=== PATIENT | male | born 1970 | race Hispanic/Latino ===

== ENCOUNTER 2017-07-13 11:14 | Observation (INO) | payer OTHER ==
[~2017-07-13] VITALS: Ht 185.4 cm; Wt 155.1 kg
[2017-07-13] MEDS ORDERED: ACETAMINOPHEN 325 MG TAB PO ONE (12:15)
--- NOTE | 2017-07-13 12:53 | Diagnostic Imaging Report ---
History:Right-sided numbness in foot and arm Comparison studies: None Technique: Axial images were obtained from the skull base to the vertex. Coronal and sagittal reconstructions obtained from the axial data. Findings: Scalp/skull: No abnormalities. No fractures, blastic or lytic lesions. Extra-axial spaces: No masses. No fluid collections. Brain sulci: Appropriate for age. Ventricles: Normal in size and configuration. No hydrocephalus. Parenchyma: No abnormal densities. No masses, hemorrhage, acute or chronic cortical vascular insults. Sellar/suprasellar region: No abnormalities Craniocervical junction: Patent foramen magnum. No Chiari one malformation. IMPRESSION: No abnormalities . Signed by: DR Jimi Pichardo M.D. on 07/13/2017 12:49 PM
[2017-07-13] MEDS ORDERED: ASPIRIN 325 MG TAB PO ONE (13:00)
[2017-07-13 13:04] LABS: BASOPHILS # (AUTO) 0.1 (0.0-0.1); BASOPHILS % 0.4 % (0.0-1.0); EOSINOPHILS # (AUTO) 0.4 (0.0-0.4); EOSINOPHILS % 2.4 % (0.0-6.0); HEMATOCRIT 44.3 % (38.2-49.6); HEMOGLOBIN 13.5 g/dL (14.0-18.0); MEAN CORPUSCULAR HEMOGLOBIN 22.6 pg (28-32); MEAN CORPUSCULAR HGB CONC 30.5 g/dL (31-35); MEAN CORPUSCULAR VOLUME 74.2 fL (81-99); MONOCYTES # (AUTO) 1.2 (0.2-0.8); MONOCYTES % 6.9 % (4.4-11.3); NEUTROPHILS # (AUTO) 13.2 (2.1-6.9); NEUTROPHILS % 77.9 % (38.7-80.0); PLATELET COUNT 404 x10e3/uL (140-360); RED BLOOD COUNT 5.97 x10e6/uL (4.3-5.7); RED CELL DISTRIBUTION WIDTH 19.9 % (11.7-14.4)
[2017-07-13 13:27] LABS: ALBUMIN 3.3 g/dL (3.5-5.0); ALBUMIN/GLOBULIN RATIO 0.7 (0.8-2.0); ANION GAP 14.1 mmol/L (8-16); CALCIUM 9.7 mg/dL (8.4-10.2); CREATININE, SERUM 1.34 mg/dL (0.72-1.25); POTASSIUM 4.1 mmol/L (3.5-5.1)
[2017-07-13] MEDS: SODIUM CHLORIDE 0.9% 1000ML 1,000 ML IV SCH (16:49)
[2017-07-13] MEDS: ASPIRIN 325 MG TAB EC PO SCH (16:49)
--- OUTSIDE RECORDS SUMMARY | 2017-07-13 17:38 | XMS REPORT ---
Author Author [facility] Address Unknown Phone Unavailable Care Team Providers Care Analysis Manager Name Role Phone JORDAN GUTHRIE Unavailable Unavailable Problems This patient has no known problems. Allergies, Adverse Reactions, Alerts This patient has no known allergies or adverse reactions. Medications This patient has no known medications. Results Test Description Test Time Test Comments Text Results Atomic Results Result Comments CT BRAIN WO [place] [address] Patient Name: RAHAT BRO MR #: [id number] : 1970 Age/Sex: 46/M Req #: [id number] Adm Physician: Ordered by: JORDAN GUTHRIE MD Report #: [id number] Location: ER Room/Bed: Procedure: [id number] CT/CT BRAIN WO Exam Date: 07/13/17 Exam Time: 1215 REPORT STATUS: Signed History:Right-sided numbness in foot and arm Comparison studies: None Technique: Axial images were obtained from the skull base to the vertex. Coronal and sagittal reconstructions obtained from the axial data. Findings: Scalp/skull: No abnormalities. No fractures, blastic or lytic lesions. Extra-axial spaces: No masses. No fluid collections. Brain sulci: Appropriate for age. Ventricles: Normal in size and configuration. No hydrocephalus. Parenchyma: No abnormal densities. No masses, hemorrhage, acute or chronic cortical vascular insults. Sellar/suprasellar region: No abnormalities Craniocervical junction: Patent foramen magnum. No Chiari one malformation. IMPRESSION: No abnormalities . Signed by: DR Jimi Pichardo M.D. on 2017 12:49 PM Dictated By: JIMI LEDEZMA MD 1249 Transcribed By: CADEN on 07/13/17 1249 COPY TO: JORDAN GUTHRIE MD
[2017-07-13 18:16] VITALS: BP 144/73
[2017-07-13] MEDS ORDERED: METOPROLOL SUCC25 MG (18:19)
[2017-07-13 18:41] VITALS: BP 144/73
[2017-07-13] MEDS ORDERED: JARDIANCE PO (18:53)
[2017-07-13] MEDS ORDERED: JANUMET XR 50-1 EAC1 (18:53)
[2017-07-13 19:00] VITALS: BP 126/77
[2017-07-13] MEDS ORDERED: ENOXAPARIN SOD INJ 40 MG/0.4 ML SYR SC SCH (19:00)
--- NOTE | 2017-07-13 19:45 | Diagnostic Imaging Report ---
Exams: Neck and intracranial CTA History:Right-sided weakness with slurred speech Comparison studies:None Technique: Axial images were obtained from the thoracic inlet. Coronal and sagittal images reconstructed from the axial data. Multiplanar MIP and 3-D reformatted images were also created from the axial source. Intravenous contrast: 100 cc of Omnipaque 300. If present, stenosis is calculated utilizing the NASCET method which calculates the degree of stenosis with reference to the normal lumen of the carotid artery distal to the stenosis. Findings: Cervical CTA: Aortic arch and major vessels: Patent, no abnormalities. Common origin of the right brachycephalic trunk and left common carotid artery. The left vertebral artery arises recommended off the aortic arch. Common carotid arteries: Patent. No abnormalities. Carotid bulbs: Patent, no (0% stenosis bilaterally. Minimal nonstenotic hard plaque at the left bulb. Internal carotid arteries: Patent, no abnormalities. Vertebral arteries:. Patent, no abnormalities. Right vertebral artery is dominant. Left vertebral artery arises directly off the aortic arch. Intracranial CTA: No aneurysm or vascular malformation identified. Internal carotid arteries: Patent, no abnormalities. Anterior cerebral arteries: Patent, no abnormalities in the A1 and A2 segments. The right A1 segment is congenitally smaller than left. Middle cerebral arteries: Patent, no abnormalities in the M1 and proximal M2 segments. Vertebral arteries: Patent, no abnormalities. Basilar artery: Patent, no abnormalities. Posterior cerebral arteries: Patent, no abnormalities. Hypoplastic bilateral P1 segments with the dominant supply to the posterior cerebral arteries bilaterally via prominent posterior to indicating arteries (bilateral persistent SECURITIES COUNSELOR origins). Anatomical variants: Acom: Patent. Pcoms: Patent, bilateral persistent SECURITIES COUNSELOR origins. Vertebral arteries: Right is dominant. Basilar artery: Mildly hypoplastic. Incidental findings: Mildly degenerated cervical disks from C4 to C7 with small anterior disc osteophyte complexes. Mild right C3-C4 foraminal stenosis due to uncovertebral arthrosis. IMPRESSION: Cervical CTA: 1. Patent carotid and vertebral arteries without stenosis. 2. No (0%) stenosis at the carotid bulbs. 3. Minimal nonstenotic plaque at the left carotid bulb. Intracranial CTA: 1. No acute intracranial CTA abnormalities. 2. No major branch occlusion or flow-limiting stenosis in the [place]. 3. Anatomical variants as described. Signed by: Dr. Joe Trujillo M.D. on 07/13/2017 7:41 PM
--- NOTE | 2017-07-13 19:45 | Diagnostic Imaging Report ---
Exams: Neck and intracranial CTA History:Right-sided weakness with slurred speech Comparison studies:None Technique: Axial images were obtained from the thoracic inlet. Coronal and sagittal images reconstructed from the axial data. Multiplanar MIP and 3-D reformatted images were also created from the axial source. Intravenous contrast: 100 cc of Omnipaque 300. If present, stenosis is calculated utilizing the NASCET method which calculates the degree of stenosis with reference to the normal lumen of the carotid artery distal to the stenosis. Findings: Cervical CTA: Aortic arch and major vessels: Patent, no abnormalities. Common origin of the right brachycephalic trunk and left common carotid artery. The left vertebral artery arises recommended off the aortic arch. Common carotid arteries: Patent. No abnormalities. Carotid bulbs: Patent, no (0% stenosis bilaterally. Minimal nonstenotic hard plaque at the left bulb. Internal carotid arteries: Patent, no abnormalities. Vertebral arteries:. Patent, no abnormalities. Right vertebral artery is dominant. Left vertebral artery arises directly off the aortic arch. Intracranial CTA: No aneurysm or vascular malformation identified. Internal carotid arteries: Patent, no abnormalities. Anterior cerebral arteries: Patent, no abnormalities in the A1 and A2 segments. The right A1 segment is congenitally smaller than left. Middle cerebral arteries: Patent, no abnormalities in the M1 and proximal M2 segments. Vertebral arteries: Patent, no abnormalities. Basilar artery: Patent, no abnormalities. Posterior cerebral arteries: Patent, no abnormalities. Hypoplastic bilateral P1 segments with the dominant supply to the posterior cerebral arteries bilaterally via prominent posterior to indicating arteries (bilateral persistent SERVICE AIDE origins). Anatomical variants: Acom: Patent. Pcoms: Patent, bilateral persistent SERVICE AIDE origins. Vertebral arteries: Right is dominant. Basilar artery: Mildly hypoplastic. Incidental findings: Mildly degenerated cervical disks from C4 to C7 with small anterior disc osteophyte complexes. Mild right C3-C4 foraminal stenosis due to uncovertebral arthrosis. IMPRESSION: Cervical CTA: 1. Patent carotid and vertebral arteries without stenosis. 2. No (0%) stenosis at the carotid bulbs. 3. Minimal nonstenotic plaque at the left carotid bulb. Intracranial CTA: 1. No acute intracranial CTA abnormalities. 2. No major branch occlusion or flow-limiting stenosis in the [place]. 3. Anatomical variants as described. Signed by: Dr. Joe Trujillo M.D. on 07/13/2017 7:41 PM
[2017-07-13 21:11] VITALS: BP 144/73
[2017-07-13] MEDS ORDERED: IOPAMIDOL 370 MG/ML 200 ML INFUS..BTL INJ ONE (22:52)
[2017-07-13] MEDS ORDERED: SODIUM CHLORIDE 0.9% 100 ML ONE (22:52)
[2017-07-13 23:22] LABS: INR 1.15; PARTIAL THROMBOPLASTIN TIME 32.6 seconds (23.8-35.5); PROTHROMBIN TIME 13.8 seconds (11.9-14.5)
[2017-07-14] VITALS: BP 135/53
[2017-07-14] MEDS: SODIUM CHLORIDE 0.9% 1000ML 1,000 ML IV SCH ×2 (02:03→08:07)
[2017-07-14 04:00] VITALS: BP 136/53
[2017-07-14 06:17] LABS: BASOPHILS % 0.3 % (0.0-1.0); EOSINOPHILS # (AUTO) 0.4 (0.0-0.4); EOSINOPHILS % 2.8 % (0.0-6.0); HEMATOCRIT 42.7 % (38.2-49.6); HEMOGLOBIN 12.9 g/dL (14.0-18.0); LYMPHOCYTES # (AUTO) 1.8 (1.0-3.2); LYMPHOCYTES % 11.4 % (18.0-39.1); MEAN CORPUSCULAR HGB CONC 30.2 g/dL (31-35); MONOCYTES # (AUTO) 1.2 (0.2-0.8); MONOCYTES % 7.4 % (4.4-11.3); NEUTROPHILS # (AUTO) 12.1 (2.1-6.9); NEUTROPHILS % 77.5 % (38.7-80.0); PLATELET COUNT 381 x10e3/uL (140-360); RED BLOOD COUNT 5.62 x10e6/uL (4.3-5.7); RED CELL DISTRIBUTION WIDTH 19.8 % (11.7-14.4)
[2017-07-14 06:32] LABS: ALANINE AMINOTRANSFERASE 25 IU/L (0-55); ALBUMIN 2.9 g/dL (3.5-5.0); ALBUMIN/GLOBULIN RATIO 0.6 (0.8-2.0); ALKALINE PHOSPHATASE 47 IU/L (40-150); ANION GAP 11.9 mmol/L (8-16); BLOOD UREA NITROGEN 12 mg/dL (7-26); BUN/CREATININE RATIO 10 (6-25); CARBON DIOXIDE 29 mmol/L (22-29); CHLORIDE 101 mmol/L (98-107); CREATININE, SERUM 1.24 mg/dL (0.72-1.25); EST GLOMERULAR FILTRATION RATE > 60 ML/MIN (60-); GLUCOSE 119 mg/dL (74-118); POTASSIUM 4.9 mmol/L (3.5-5.1); SODIUM 137 mmol/L (136-145)
[2017-07-14] MEDS ORDERED: FAMOTIDINE 20 MG TAB PO SCH (07:30)
[2017-07-14 08:09] VITALS: BP 125/66
[2017-07-14] MEDS: ASPIRIN 325 MG TAB EC PO SCH (08:09)
[2017-07-14 08:18] VITALS: BP 125/66
[2017-07-14] MEDS ORDERED: JARDIANCE 10 MG PO SCH (09:00)
--- NOTE | 2017-07-14 11:50 | Consultation ---
DATE OF CONSULTATION: July 13, 2017 NEUROLOGICAL CONSULTATION HISTORY OF PRESENT ILLNESS: Mr. Salinas is a 46-year-old iarow-udia-surtlquk man with past medical history significant for hypertension, hyperlipidemia, and diabetes mellitus type 2 who he presents to [facility] with a probable transient ischemic attack. On the morning of admission, the patient experienced the sudden onset of numbness of the right foot. This was followed approximately one minute later by a heavy sensation affecting the right hand and arm. These symptoms lasted for approximately 4 to 5 minutes, then spontaneously resolved. Ten minutes later the above symptoms recurred with the addition of weakness affecting the right hand. Mr. Salinas reports being unable to write with his right hand, text with his right hand, or manipulate a computer mouse. Once again, the symptoms lasted for approximately 4 to 5 minutes and then spontaneously resolved. Some time later these symptoms recurred for a third time. When the symptoms recurred for the third time, the patient texted his . However, due to weakness and possible incoordination of the right hand, the text message sent to the patient's was not decipherable. The patient's then called the patient to find out why he sent such a strange text message. While speaking to the patient, Mrs. Salinas noted the patient's speech was slowed. She does not report dysarthria or aphasia, but slowness of speech. Mrs. Salinas encouraged her to call 11-11-1, but he declined. She then drove to the patient's place of work to pick him up and bring him to a hospital for evaluation and treatment. During this time, the patient experienced a 4th recurrence of the previously described symptoms. Mr. Salinas's brought him to the emergency center at [facility] for further evaluation and treatment. En route to the hospital, the patient's reports Mr. Salinas endorsed a headache which is described as follows: The pain was located over the occiput, towards the right side of the head and did not radiate. The pain was described as dull and rated a 4 out of 10. There was no photophobia, phonophobia, nausea, vomiting, dizziness or visual disturbance associated with the headache. Mr. Salinas does not have a prior history of headaches. In the emergency center, the patient's blood pressure was 155/66 mmHg with a pulse of 98 beats per minute. His neurological examination was reportedly nonfocal. A CT of the brain without contrast was performed and did not show evidence of recent large territorial ischemia or hemorrhage. Mr. Salinas was admitted to [facility] under observation status for further evaluation and treatment. REVIEW OF SYSTEMS: Slowed speech, weakness of the right arm, numbness of the right foot, headache. Otherwise the 12 point review of systems is negative. PAST MEDICAL HISTORY: Hypertension, hyperlipidemia, diabetes mellitus type 2, chronic kidney disease stage unknown, kidney stones. PAST SURGICAL HISTORY: Mr. Salinas reports undergoing a cauterization procedure as part of fertility treatments. PAST HOSPITALIZATIONS: None. FAMILY HISTORY: The patient reports hypertension, hyperlipidemia, and diabetes mellitus affecting both sides of his family. His father has coronary artery disease and he has had a prior stroke. SOCIAL HISTORY: The patient is . He works as a general purchasing agent. The patient reports dipping tobacco, but has never smoked cigarettes. He does endorse drinking an occasional beer. The patient does not report current or prior recreational drug use. HOME MEDICATIONS: Metoprolol 25 mg by mouth daily, losartan, dose unknown, by mouth daily, Crestor, dose unknown, by mouth at bedtime daily, Janumet 50/100 mg by mouth twice daily, Jardiance 10 mg by mouth daily, testosterone 260 mg injected subcutaneously weekly. ALLERGIES: NO KNOWN DRUG ALLERGIES. NO KNOWN FOOD ALLERGIES. NO KNOWN ALLERGIES TO LATEX. NO KNOWN ALLERGIES TO IODINE OR OTHER CONTRAST MATERIALS. PHYSICAL EXAMINATION: VITAL SIGNS: Height 73 inches, weight 440 pounds. BMI 44.9 kg per meter squared. Blood pressure 116/74 mmHg. Pulse 95 beats per minute. Respiratory rate 16 breaths per minute. Oxygen saturation 99% on room air. GENERAL: The patient is awake and alert. Does not appear distressed. Morbidly obese. HEENT: Normocephalic and atraumatic. Pupils are equal, round and reactive to light. Moist mucous membranes. NECK: Supple. No appreciable thyromegaly. No appreciable carotid bruits. CARDIOVASCULAR: S1 and S2. Regular rate and rhythm. No murmurs, rubs or gallops. RESPIRATORY: Clear to auscultation bilaterally. No wheezes, rhonchi or rales. EXTREMITIES: The skin is warm and dry. No clubbing or cyanosis. Positive for 1+ pretibial pitting edema. The posterior tibial and dorsalis pedis pulses are 2+ and symmetric. SKIN: No rashes or lesions. NEUROLOGIC: Memory/attention: The patient is awake and alert. Oriented to person, place, time, and situation. CRANIAL NERVES: Cranial nerve I: Not tested. Cranial nerves II, III, IV, : Pupils are equal and round, react briskly to light (from 4 mm to 2 mm). Extraocular movements intact. No nystagmus. Cranial nerve V: Sensation to light touch and pinprick is intact in the bilateral V1 through V3 distributions. Strength of the temporalis and masseter muscles is within normal limits. Cranial nerve VII: The face is symmetric, as are all facial movements. Strength is within normal limits. Cranial nerve VIII: Hearing is intact to finger rub bilaterally. Cranial nerve IX and X: The soft palate elevates equally and symmetrically. Cranial nerve XI: Normal strength of the bilateral sternocleidomastoid and trapezius muscles. Cranial nerve XII: The tongue protrudes midline and moves symmetrically from side to side. STRENGTH: Bulk is normal, and strength is 5/5 in the bilateral deltoids, biceps, triceps, wrist flexors and extensors, finger flexors and extensors, intrinsic hand muscles, hip flexors, knee flexors and extensors, ankle dorsiflexion and plantar flexion, and intrinsic foot muscles. Tone is normal. DTRs: Deep tendon reflexes are 2+ and symmetric at the triceps, biceps, brachioradialis, patellas, and Achilles. Plantar responses are flexor bilaterally. Absent clonus. SENSATION: Intact to light touch and pinprick in both arms and both legs. CEREBELLAR: Yqlwwa-rapu-cfzkgi and heel-medel movements are intact without dysmetria or other impairment. Rapid alternating movements are intact. GAIT: Deferred. SPEECH: Spontaneous speech is normal without appreciable dysarthria or aphasia. Repetition is intact. INVOLUNTARY MOVEMENTS: None. PRONATOR DRIFT: None. LABORATORY DATA: Sodium 139, potassium 4.1, chloride 100, carbon dioxide 29. Anion gap 14.1, BUN 12, creatine 1.34. Estimated GFR 58. BUN to creatinine ratio 9. Glucose 111 and calcium of 9.7. Total bilirubin 0.7, AST 17, ALT 30, alkaline phosphatase 52. Total protein 8.3. Albumin 3.3, globulin 5.0. Albumin to globulin ratio 0.7. The CBC with differential and platelets reveals a white blood cell count of 16.94 with 77.9% neutrophils, 12.0% lymphocytes, 6.9% monocytes, 2.4% eosinophils and 0.4% basophils. The hemoglobin, hematocrit are 13.5 and 44.3, respectively. The platelet count is 404,000. DIAGNOSTIC STUDIES: EKG on 07/13/2017: Normal sinus rhythm at 83 beats per minute, low voltage QRS. CT of the brain without contrast 07/13/2017: On my review, there is no evidence of recent or remote large territorial ischemia, hemorrhage, mass or mass affect. ASSESSMENT AND PLAN: Mr. Salinas is a 46-year-old joqvl-sqrz-gwverqmq man with past medical history significant for hypertension, hyperlipidemia, diabetes mellitus type 2, and morbid obesity admitted to [facility] under observation for a transient ischemic attack. At present, the patient's neurological examination is nonfocal. Mr. Salinas's laboratory data and other diagnostic studies have been reviewed and are documented above. RECOMMENDATIONS: 1. Lipid panel and hemoglobin A1c. 2. MRI brain without contrast. 3. CTA of the brain and neck. 4. Echocardiogram. 5. Aspirin 325 mg by mouth daily for stroke prophylaxis has been ordered. This medication will be continued while the patient is in the hospital. However, at the time of discharge, the dose may be reduced to 81 mg by mouth daily for stroke prophylaxis. 6. Allow permissive hypertension pending the results of the vessel imaging. 7. Follow up the lipid panel. In the interim, continue the patient's home medication of Crestor. 8. Follow up the hemoglobin A1c. In the interim, continue patient's home medications. 9. GI prophylaxis with Pepcid 20 mg by mouth twice daily. DVT prophylaxis with Lovenox 40 mg subcutaneously daily. 10. The patient has no deficits at this time. Speech and physical therapy consultations will be deferred. 11. Defer treatment of other medical comorbidities to the primary and other services. Thank you for this consultation. I will continue to follow the patient while he remains in the hospital. TIME SPENT: 50 minutes Job#: [id number] GH LINH
[2017-07-14 12:05] VITALS: BP 145/84
[2017-07-14] MEDS ORDERED: ASPIR 8181 MG PO (14:28)
[2017-07-14] MEDS ORDERED: ASPIRIN81 MG PO (14:29)
--- NOTE | 2017-07-14 15:43 | Diagnostic Imaging Report ---
History: 46-year-old male with right-sided arm and leg tingling Comparison studies: None Technique: Sagittal T2; axial DWI, FLAIR, GRE, T2, T1, Coronal FLAIR. Intravenous contrast: None Findings: Scalp: Normal in signal . No masses . Bone marrow: Normal in signal intensity. Brain sulci: Appropriate for age. Ventricles: Normal in size . No hydrocephalus . Parenchyma: * A few scattered focal FLAIR hyperintensities are seen in the subcortical and deep white matter, for example on series 3 image 21 and image 19. * Focal FLAIR hyperintensity in the left thalamocapsular region (series 3 image 18). This may represent an old lacunar infarct. Suprasellar region: No abnormalities. Craniocervical junction: Patent foramen magnum. No Chiari malformation . Vessels: Normal flow-voids in the arteries and sinuses. IMPRESSION: 1. No acute infarct, intracranial hemorrhage, or mass. 2. Nonspecific subcortical and deep white matter FLAIR hyperintensities, differential possibility includes early chronic small vessel ischemic changes, demyelinating process, vasculitis or migraine type headache. 3. Old lacunar infarct in the left thalamocapsular region. A preliminary report was given by Neuroradiology fellow Dr. Mendoza at 3:42 PM on 07/14/2017. I have reviewed the study and agree with the findings in the preliminary report. Signed by: Dr. Anushka Martinez M.D. on 07/14/2017 9:28 PM
== END 2017-07-14 15:02 | disposition home or self-care (01) ==
LOC: ER 11:14 → ERHOLD 17:36 → IMCU 17:38
DX: G45.9 Transient cerebral ischemic attack, unspecified (principal); E11.9 Type 2 diabetes mellitus without complications; I10 Essential (primary) hypertension; E78.5 Hyperlipidemia, unspecified; R20.0 Anesthesia of skin; E66.01 Morbid (severe) obesity due to excess calories; Z68.42 Body mass index [BMI] 45.0-49.9, adult
CPT/HCPCS: 36415 ×2; 70450; 70496; 70498; 70551; 80053 ×2; 80061; 83036; 85025 ×2; 85610; 85730; 93005; 93306; 99284; G0378 ×2; J1650; J7030 ×2; J7050; Q9967